=== PATIENT | male | born 1945 | race African-American/Black ===

== ENCOUNTER 2017-02-13 12:49 | Day surgery (SDC) | payer MEDICARE, OTHER ==
[2017-02-12 11:47] LABS: HEMATOCRIT 38.2 % (37.9-51.0); HEMOGLOBIN 12.8 g/dL (13.5-17.0); HGB HCT DIFFERENCE 0.2; MEAN CORPUSCULAR HEMOGLOBIN 30.8 pg (27.0-33.4); MEAN CORPUSCULAR HGB CONC 33.5 g/dL (32.0-36.0); MEAN CORPUSCULAR VOLUME 92 fl (80-97); RED BLOOD COUNT 4.15 10^6/uL (4.35-5.55); RED CELL DISTRIBUTION WIDTH 14.1 % (11.5-14.0); WHITE BLOOD COUNT 8.6 10^3/uL (4.0-10.5)
[2017-02-12 12:04] LABS: ANION GAP 12 (5-19); BLOOD UREA NITROGEN 35 mg/dL (7-20); CALCIUM 9.8 mg/dL (8.4-10.2); CARBON DIOXIDE 25 mmol/L (22-30); CHLORIDE 105 mmol/L (98-107); CREATININE RESULT 1.24 mg/dL (0.52-1.25); GLUCOSE 97 mg/dL (75-110); POTASSIUM 5.3 mmol/L (3.6-5.0); SODIUM 141.8 mmol/L (137-145)
[~2017-02-13 12:49] MED LIST: CEFAZOLIN 1 GM/D5W RTU 1 GM/50 ML RTUPB IV PRN; LACTATED RINGERS 1000 ML IV PRN; LIDOCAINE 0.5% INJ-PF (5 MG/ML) 50 ML SDV SUBCUT PRN; SUCCINYLCHOLINE CHLORIDE INJ 200 MG/10 ML VIAL ONE
[2017-02-13] MEDS ORDERED: LIDOCAINE 0.5% INJ-PF (5 MG/ML) 50 ML SDV ONE (12:58)
[2017-02-13] MEDS ORDERED: BUPIVACAINE HCL 0.25 % INJ/PF (2.5 MG/1 ML) 30 ML VIAL ONE (12:58)
[2017-02-13] MEDS ORDERED: PROPOFOL INJ 200 MG/20 ML VIAL IV ONE (13:30)
[2017-02-13] MEDS ORDERED: MIDAZOLAM 2 MG/2 ML INJ ONE (13:30)
[2017-02-13] MEDS ORDERED: FENTANYL CITRATE INJ/PF 250 MCG/5 ML AMPULE ONE (13:30)
[2017-02-13] MEDS ORDERED: HYDROMORPHONE HCL INJ/PF 2 MG/ML AMPULE ONE (13:31)
[2017-02-13] MEDS ORDERED: ACETAMINOPHEN 100 ML IV ONE (13:31)
[2017-02-13] MEDS ORDERED: ACETAMINOPHEN 0 ML IV ONE (13:31)
[2017-02-13] MEDS ORDERED: MORPHINE SULFATE 10 MG/ML INJ IV PRN (15:22)
[2017-02-13] MEDS ORDERED: PROMETHAZINE HCL INJ 25 MG/1 ML VIAL IV PRN ×2 (15:22)
[2017-02-13] MEDS ORDERED: MEPERIDINE HCL/PF INJ 25 MG/1 ML DISP.SYRIN IV PRN (15:22)
[2017-02-13] MEDS ORDERED: FENTANYL CITRATE INJ/PF 100 MCG/2 ML AMPUL IV PRN ×3 (15:22)
[2017-02-13] MEDS ORDERED: DIPHENHYDRAMINE HCL 50 MG/ML VIAL IV PRN (15:22)
[2017-02-13] MEDS ORDERED: OXYCODONE-ACETAMINOPHEN 5-325 MG TABLET PO PRN ×3 (15:22→15:44)
--- NOTE | 2017-02-13 15:44 | PDOC DISCHARGE SUMMARY ---
Discharge Summary (SDC) - Discharge Final Diagnosis: Large infected upper back sebaceous cyst Date of Surgery: 02/13/17 Discharge Date: 02/13/17 Condition: Stable Treatment or Instructions: Leave dressing intact until follow up appointment tomorrow or Saturday with Dr. Khoury at [facility]. Do not get dressing/surgery site wet at this time. You may take Percocet 5-325 one pill every six hours as needed for pain. Do not take any other medication with acetaminophen in it while taking Percocet. You may supplement Percocet with Advil, Aleve, ibuprofen. If you have questions or concerns you may call [facility] if it is during working hours at [phone] or for after hours call [facility] at [phone] and ask for the Surgicalist. Prescriptions: Oxycodone HCl/Acetaminophen [Percocet 5-325 mg Tablet] 1 tab PO Q6H PRN #20 tab PRN Reason: Referrals: BEST TAFOYA MD [Primary Care Provider] - Discharge Diet: As Tolerated Discharge Activity: Activity As Tolerated Report the Following to Your Physician Immediately: Increase in Pain, Fever over 101 Degrees, Unusual Bleeding, Redness, Swelling, Drainage-Foul Smelling
[2017-02-13] MEDS ORDERED: ONDANSETRON HCL INJ/PF 4 MG/2 ML SDV IV PRN (15:45)
--- NOTE | 2017-02-13 15:45 | Operative Report ---
Operative Report DATE OF SURGERY: 02/13/17 PREOPERATIVE DIAGNOSIS: Right back abscess, large, extending into deep subcutaneous tissue and fascia of the right upper back POSTOPERATIVE DIAGNOSIS: Same OPERATION: 1. Drainage of right upper back abscess, excision of chronic abscess cavity, and packing of wound. SURGEON: ZACK CHIU NURSING STUDENT: KIM PARIKH ANESTHESIA: GA TISSUE REMOVED OR ALTERED: Right upper back skin, subcutaneous tissue, chronic abscess cavity, and pus. COMPLICATIONS: None ESTIMATED BLOOD LOSS: 200 cc INTRAOPERATIVE FINDINGS: See below PROCEDURE: The patient was seen in the preop holding area with the right upper back was exposed, and examined. Patient had a very large chronic right upper back abscess cavity, cephalad to a site of previous right back abscess drainage 9 years ago. There were 2 active draining sites. The proposed operation was for a wide excisional debridement, and necessary drainage procedure. The patient had a screening EKG which was interpreted as showing simple anterior myocardial infarction. This was reviewed by Dr. Menon, the anesthesiologist, Dr. Hughes, and Dr. Angus Camacho, and felt collectively to reflect aberrant positioning of the EKG leads. Furthermore in light of the patient's absence of cardiovascular symptoms, we felt that it was felt safe to proceed. The patient was taken to the operating room where general anesthesia was induced. The patient was placed on a beanbag, tilted to the left side down right side up position, with arms appropriately protected, and left shoulder properly cushioned. The right back was prepped and draped sterile fashion. Surgical plan and surgical timeout were conducted. Findings were significant again for old very large hyperpigmented skin which was thickened encompassing the right upper back. The actual abscess cavity was close to 10-12 cm in diameter and was palpated as a mass the size of a softball. We need to excise the skin with a 1% plain lidocaine, then made an elliptical excision encompassing section of skin approximately 3 cm diameter by 9 cm in length oriented vertically. Fluted the previously described drainage sites. The back skin was extremely thick. Once we got into the abscess cavity , approximately 200 cc of randall pus was evacuated. It was sent for culture and sensitivity. There is no foul smell. At this point we will looking into the chronic abscess cavity again the size of a softball. Because of the recurrent nature of the infection, we felt that a extirpated of removal of the rind was appropriate. For the next hour we carved out using a combination of #10 blade, and electrocautery, the very thick rind comprising the abscess wall. This took us down to reasonably soft subcutaneous tissue peripherally and down to the musculature of the back along the deep plane. Some of the abscess cavity likely involve the posterior abscess wall nausea. Hemostasis was achieved using a combination of cautery, and a 3-0 Vicryl suture. This is a very methodical meticulous treatment and essentially 90-95% of the elements were removed. Because of the infected nature of the wound, and the bleeding encountered although now stabilized mechanically, I felt that packing the wound for 4-48 hours, then removing and placing a wound VAC would be the most appropriate course of action and so this was affected. Hemostasis was achieved again with cautery, and approximately three-quarter length of slightly moistened normal saline Kerlix was placed in the abscess cavity. 4 x 4's applied. Tape applied. Patient tolerated the procedure well, returned to the supine position , extubated, and taken recovery in stable condition. The physician ophthalmic medical assistant, Ms. Shine, provided assistance during this case by: Assisting with retracting tissue, instillation of local anesthesia and closure of skin incisions.
[2017-02-13 17:54] VITALS: BP 110/62
--- NOTE | 2017-02-13 22:54 | EKG REPORT ---
SEVERITY:- BORDERLINE ECG - SINUS RHYTHM CONSIDER ANTERIOR INFARCT : Confirmed by: Liliya Castañeda 13-Feb-2017 22:54:03
== END 2017-02-13 17:30 | disposition home or self-care (01) ==
LOC: OROUT 12:49
PROVIDERS: ATTEND Surgery
PROC: 0J970ZZ Drainage of Back Subcutaneous Tissue and Fascia, Open Approach (ICD-10-PCS; principal; 2017-02-13 15:00)
DX: L02.212 Cutaneous abscess of back [any part, except buttock and flank] (principal); I10 Essential (primary) hypertension; E78.00 Pure hypercholesterolemia, unspecified; Z87.09 Personal history of other diseases of the respiratory system; Z79.82 Long term (current) use of aspirin; Z79.899 Other long term (current) drug therapy
CPT/HCPCS: 36415 ×2; 87070; 87205; 84132; 85027; 87075; 87077; 80048; 87186; 88304 ×2; 93005; 93010; 10060; J2250; J0690; J3010; J3490; A9270; J0330; J2704; J0131; 300; J1170

== ENCOUNTER → 2017-07-18 | Outpatient (CLI) | payer MEDICARE, OTHER ==
--- NOTE | 2017-07-18 10:24 | RADIOLOGY REPORT (SQ) ---
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 TECHNIQUE: Multiplanar imaging includes noncontrasted T1, T2, FLAIR, diffusion with ADC map and post gadolinium contrast T1 sequences. Additional thin sections through the internal auditory canals. Im ages stored on PACS. CONTRAST TYPE AND DOSE: 20 mL Multihance. RENAL FUNCTION: GFR > 60. LIMITATIONS: None. FINDINGS: ANATOMY: No anomalies. Normal vascular flow voids. Pituitary fossa normal. CSF SPACES: Normal in size and contour. No hemorrhage. CEREBRUM: Sulci and gyri normal in size and contour. Normal white matter signal on FLAIR imaging. No evidence of hemorrhage, mass, or extraaxial fluid collection. No abnormal enhancement post contrast. POSTERIOR FOSSA: No signal alteration. No hemorrhage. No edema, masses, or mass effect. Internal kip tory canals, cerebellopontine angles are normal. Trace of fluid in the right mastoids. No enhancing lesions. No abnormal enhancement post contrast. DIFFUSION IMAGING: Negative for acute or subacute infarction. ORBITS: No masses. Globes normal. PARANASAL SINUSES: No fluid levels. Mucosa normal. OTHER: No other significant finding. IMPRESSION: Normal brain. Trace of fluid in the right mastoids. Otherwise normal IAC's. EVIDENCE OF ACUTE STROKE: NO. TECHNICAL DOCUMENTATION: JOB ID: [id number] [employer]- All Rights Reserved
== END ==
LOC: RAD 08:57
PROVIDERS: ATTEND Otolaryngology
DX: H93.13 Tinnitus, bilateral (principal)
CPT/HCPCS: 82565; 70553; A9577